=== PATIENT | female | born 1930 | race Caucasian/White ===

== ENCOUNTER 2016-12-04 08:00 | Outpatient (CLI) | payer MEDICARE, MEDICAID | END 2016-12-04 08:01 | disposition home or self-care (01) | DX: I50.20 Unspecified systolic (congestive) heart failure (principal); E11.9 Type 2 diabetes mellitus without complications ==

== ENCOUNTER 2017-01-08 17:00 | Outpatient (CLI) | payer MEDICARE, MEDICAID | END 2017-01-08 23:59 | DX: R82.90 Unspecified abnormal findings in urine (principal) ==

== ENCOUNTER 2017-01-10 19:42 | Outpatient (CLI) | payer MEDICARE, MEDICAID | END 2017-01-10 19:43 | disposition critical access hospital (66) | DX: R53.83 Other fatigue (principal) ==

== ENCOUNTER 2017-01-10 19:46 | Emergency (ER) | payer MEDICARE, MEDICAID ==
[2017-01-10] MEDS ORDERED: ASPIRIN CHEW 81 MG TABLET PO STA (21:00)
[2017-01-10] MEDS ORDERED: ASPIRIN CHEW 81 MG TABLET ONE (21:03)
== END 2017-01-10 21:52 | disposition short-term general hospital (02) ==
DX: I21.4 Non-ST elevation (NSTEMI) myocardial infarction (principal); I11.0 Hypertensive heart disease with heart failure; I50.1 Left ventricular failure, unspecified; G30.9 Alzheimer's disease, unspecified; F02.80 Dementia in other diseases classified elsewhere, unspecified severity, without behavioral disturbance, psychotic disturbance, mood disturbance, and anxiety; E11.9 Type 2 diabetes mellitus without complications; Z79.4 Long term (current) use of insulin; K21.9 Gastro-esophageal reflux disease without esophagitis; Z95.0 Presence of cardiac pacemaker
CPT/HCPCS: 36415; 71010; 80053; 81003; 83690; 83880; 84484; 85025; 85610; 85730; 87040; 93005; 93010; 99284; 99285; A9270

== ENCOUNTER 2017-01-10 21:56 | Outpatient (CLI) | payer MEDICARE, MEDICAID | END 2017-01-10 21:57 | disposition short-term general hospital (02) | DX: I21.4 Non-ST elevation (NSTEMI) myocardial infarction (principal) | CPT/HCPCS: A0425; A0429 ==